=== PATIENT | female | born 1970 | race Caucasian/White ===

== ENCOUNTER 2017-02-14 10:50 | Day surgery (SDC) | payer OTHER ==
--- NOTE | 2017-02-06 11:05 | HP ---
Admitting History and Physical - Primary Care Physician PCP: Flako Acosta - Admission Chief Complaint: right breast cancer History of Present Illness: 46 yo female noted to have suspicious calcifications in the right breast at 10 oclock position, underwent a steriotactic core bx on 01/05/2017 which was c/w a high grade DCIS and radial sclerosing lesion. ER and GA positive. Patient had an MRI done which was c/w known cancer without multifocal or contralateral dz. Patient to undergo right breast WE with NL, lympho and snbx. History Source: Patient Limitations to Obtaining History: No Limitations - Past Medical History Gastrointestinal: Yes: Other (Celiac) ENT: Yes: Other (environmental allergies) Endocrine: Yes: Other (Hashimotos) Dermatology: Yes: Psoriasis - Past Surgical History Past Surgical History: Yes: Appendectomy (2011), Breast Biopsy (bilateral breast bxs in 2004 and 2012-benign) - Smoking History Smoking history: Former smoker Have you smoked in the past 12 months: No - Alcohol/Substance Use Hx Alcohol Use: Yes (3 per week) Home Medications - Allergies Allergies/Adverse Reactions: Allergies Allergy/AdvReac Type Severity Reaction Status Date / Time Gadolinium-Containing Allergy Verified 01/19/17 10:11 Contrast Medi Family Disease History - Family Disease History Family Disease History: CA: Grandparent (Breast ca (twice) 40's ), Sister (half sister @ 45 breast ca ;BRCA negative) Review of Systems - Review of Systems Constitutional: reports: No Symptoms Cardiovascular: reports: No Symptoms Respiratory: reports: No Symptoms Physical Examination Constitutional: Yes: Well Nourished, Calm Breast(s): Yes: Other (Breasts are symmetrical without suspicious masses or adenopathy noted bilaterally.) Problem List - Problems (1) Ductal carcinoma in situ (DCIS) of right breast Assessment/Plan: Right breast WE with NL, lymphoscintogram, snbx poss andx Code(s): D05.11 - INTRADUCTAL CARCINOMA IN SITU OF RIGHT BREAST
[2017-02-07 10:25] VITALS: BMI 18.8
[2017-02-14] MEDS ORDERED: PROPOFOL 20 ML ONE ×2 (15:29→15:53)
[2017-02-14] MEDS ORDERED: MIDAZOLAM HCL 2 MG/2 ML SINGLE DOSE VIAL ONE (15:29)
[2017-02-14] MEDS ORDERED: ISOSULFAN BLUE 10 MG/ML VIAL SQ ONE (15:44)
[2017-02-14] MEDS ORDERED: DEXAMETHASONE SOD PHOSPHATE 4 MG/1 ML VIAL ONE ×2 (16:06→16:08)
[2017-02-14] MEDS ORDERED: ONDANSETRON 4 MG/2 ML VIAL ONE (16:08)
[2017-02-14] MEDS ORDERED: SODIUM CHLORIDE 0.9% P/F 10 ML VIAL IJ ONE (16:08)
[2017-02-14] MEDS ORDERED: LIDOCAINE HCL/PF 2% SDV 5ML VIAL ONE (16:08)
[2017-02-14] MEDS ORDERED: ceFAZolin SODIUM 1 GM VIAL ONE (16:08)
[2017-02-14] MEDS ORDERED: oxyCODONE HCL 5 MG TABLET PO PRN (16:27)
[2017-02-14] MEDS ORDERED: PROMETHAZINE HCL 25 MG/1 ML VIAL IVPUSH PRN (16:27)
[2017-02-14] MEDS ORDERED: ONDANSETRON 4 MG/2 ML VIAL IVPUSH PRN (16:27)
[2017-02-14] MEDS ORDERED: LIDOCAINE HCL 1%, 10 MG/ML (20ML VIAL) ONE (16:42)
[2017-02-14] MEDS ORDERED: DESFLURANE GAS 240 ML BOTTLE IH ONE (16:42)
[2017-02-14] MEDS ORDERED: BUPIVACAINE HCL/PF 2.5 MG/ML - 30 ML VIAL IJ ONE (16:47)
[2017-02-14] MEDS ORDERED: BUPIVACAINE HCL/PF 0.25% (2.5MG/ML) 10 ML VIAL IJ ONE (17:15)
[2017-02-14] MEDS ORDERED: KETOROLAC TROMETHAMINE 30 MG/1 ML VIAL IVPUSH PRN (17:27)
[2017-02-14] MEDS ORDERED: ONDANSETRON 4 MG/2 ML VIAL IVPB PRN (17:27)
[2017-02-14] MEDS ORDERED: DEXTROSE 5%-0.45% SALINE 1,000 ML IV SCH (17:30)
[2017-02-14 20:01] VITALS: PULSE 67
[2017-02-14 20:21] VITALS: BP 110/62; TEMP 98.1
--- NOTE | 2017-02-15 07:39 | OP ---
DATE OF OPERATION: 02/14/2017 PREOPERATIVE DIAGNOSIS: Right breast ductal carcinoma in situ, high grade. POSTOPERATIVE DIAGNOSIS: Right breast ductal carcinoma in situ, high grade. PROCEDURE: Right breast partial mastectomy with mammographic needle localization with right axillary sentinel lymph node biopsy and partial tissue transfer closure. ANESTHESIA: General laryngeal mask airway anesthesia. PRIMARY SURGEON: Santino Acosta MD CASTING ASSISTANT: JANEY Garcia ANESTHESIOLOGIST: Mookie Sky MD COMPLICATIONS: None. Briefly, the patient is a 46-year-old perimenopausal white female of [place] descent with a family history with a half sister who had breast cancer at age 45 and her paternal grandmother had breast cancer in her 40s. The patient was found to have some calcifications around the 10 o'clock region of the right breast on screening mammography in December 2016 and stereotactic biopsy showed high-grade DCIS which is ER/NH positive. MRI showed no contralateral or multifocal disease. 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 Wide excision was recommended with a sentinel lymph node biopsy given the high-grade nature of the DCIS. The patient was brought in for the procedure on February 14, 2017, and underwent the lymphoscintigraphy and needle localization at [facility] and then was brought to the [place] holding area. In the holding area, site verification was made and informed consent was obtained. She was brought into the operating room and laid on the OR table in the supine position. Venodynes were placed on the lower extremities and she received a gram of Ancef prior to incision. Both breasts were sterilely prepped and draped in the usual fashion and she underwent general laryngeal mask airway anesthesia. Lymphazurin blue, 3 mL, were injected intradermally and peritumorally around the needle localization site and massage was instituted. An incision was made just below the hair-bearing area of the right axilla and dissection was undertaken and 2 blue hot lymph nodes were easily found in the level I region of the right axilla labeled "sentinel lymph node number 1" with a 10-second gamma count of 1551 and "sentinel lymph node number 2" which had a 10-second gamma count of 2994. Both of these were sent off in formalin for permanent section and were grossly negative. Hemostasis was achieved. Background count after removal of these 2 nodes was 241. No other blue or hot nodes were found and the axilla was closed using interrupted 2-0 plain suture to close the deep tissues and then interrupted 3-0 deep dermal Vicryl suture and a running 4-0 subcuticular Biosyn suture to close the skin. Mastisol, Steri-Strips were applied over the wound. We then performed the wide excision around the right breast needle localization site. An incision was made around the periareolar region of the right breast nipple-areolar complex and dissection was undertaken around the needle localization site. The breast tissue was completely removed from around the wire with the breast tissue completely removed all the way down to the pectoralis major muscle. The specimen was oriented with a long lateral, short superior suture and specimen radiograph showed removal of the clip in question. At this point, separate margins were taken on the superior, inferior, medial, lateral, deep, and anterior margins with sutures marking the biopsy cavity sides. Hemostasis was achieved. At this point, the 3 x 4-cm tissue transfer closure was accomplished by undermining the breast tissue and reapproximating the breast tissue with interrupted 2-0 plain suture. The skin was closed using interrupted 3-0 deep dermal Vicryl suture and a running 4-0 subcuticular Biosyn suture. Mastisol, Steri-Strips applied over the wound. The patient was awake and alert and laryngeal mask airway tube was removed at the end of the case. Estimated blood loss was about 20 mL and she was hemodynamically stable throughout. All sponge and needle counts were correct at the end of the case. The patient will be recovered in the postanesthesia care unit and discharged home the same day once discharge criteria are met. She is to follow up in the office in 1 week for a formal wound pathology check. SANTINO ACOSTA M.D. [id number]
--- NOTE | 2017-02-20 15:12 | PATH ---
Surgical Pathology Report Patient Name: [facility]. Rec. #: [id number] /Age/Gender: 1970 (Age: 46) / F Account: [id number] Location: [facility] Taken: 02/14/2017 Received: 02/14/2017 Reported: 02/20/2017 Physicians: Flako Acosta M.D. Specimen(s) Received A: RIGHT AXILLARY SENTINEL NODE #1 B: RIGHT AXILLARY SENTINEL NODE #2 C: RIGHT BREAST WIDE EXCISION D: RIGHT BREAST SUPERIOR MARGIN E: RIGHT BREAST INFERIOR MARGIN F: RIGHT BREAST MEDIAL MARGIN G: RIGHT BREAST LATERAL MARGIN H: RIGHT BREAST DEEP MARGIN I: RIGHT BREAST ANTERIOR MARGIN Clinical History DCIS right upper outer quadrant Final Diagnosis A. LYMPH NODE, RIGHT AXILLARY SENTINEL #1, EXCISION: ONE BENIGN LYMPH NODE (0/1). B. LYMPH NODE, RIGHT AXILLARY SENTINEL #2, EXCISION: ONE BENIGN LYMPH NODE (0/1). C. BREAST, RIGHT, WIDE EXCISION: ATYPICAL DUCTAL HYPERPLASIA (ADH), RADIAL SCAR, SCLEROSING ADENOSIS, PROLIFERATIVE FIBROCYSTIC CHANGES, FIBROADENOMATOID CHANGES AND COLUMNAR CELL CHANGES WITH ASSOCIATED CALCIFICATIONS. NO RESIDUAL DUCTAL CARCINOMA IN SITU (DCIS) IS IDENTIFIED. PRIOR BIOPSY SITE CHANGES ARE PRESENT. D. BREAST, RIGHT, SUPERIOR MARGIN, EXCISION: BENIGN BREAST TISSUE SHOWING RADIAL SCAR, SCLEROSING ADENOSIS, FIBROCYSTIC CHANGES AND COLUMNAR CELL CHANGES. E. BREAST, RIGHT, INFERIOR MARGIN, EXCISION: BENIGN BREAST TISSUE SHOWING SCLEROSING ADENOSIS AND COLUMNAR CELL CHANGES. F. BREAST, RIGHT, MEDIAL MARGIN, EXCISION: BENIGN BREAST TISSUE SHOWING RADIAL SCAR AND SCLEROSING ADENOSIS. G. BREAST, RIGHT, LATERAL MARGIN, EXCISION: BENIGN BREAST TISSUE SHOWING FIBROCYSTIC CHANGES. H. BREAST, RIGHT, DEEP MARGIN, EXCISION: BENIGN BREAST TISSUE SHOWING FIBROCYSTIC CHANGES AND SCLEROSING ADENOSIS. I. BREAST, RIGHT, ANTERIOR MARGIN, EXCISION: BENIGN BREAST TISSUE SHOWING FIBROCYSTIC CHANGES. Electronically Signed Bailey Diehl M.D. Gross Description A. Received in formalin labeled "right axillary sentinel node #1," is a 1.1 x 1.0 x 0.6 cm kumar, irregular lymph node with attached fat. The specimen is bisected and entirely submitted in one cassette. B. Received in formalin labeled "right axillary sentinel node #2," a 1.3 x 1.0 x 0.6 cm kumar, irregular lymph node with attached fat. The specimen is bisected and entirely submitted in one cassette. C. Received in formalin, labeled "right breast wide excision," is a 4.7 x 4.0 x 2.6 cm. kumar-yellow, irregular,portion of fibroadipose tissue with a needle localization wire present. There is a short suture marking the superior aspect and a long suture marking the lateral aspect, per the surgeon. There is no skin present. The specimen is inked as follows: superior and lateral blue; inferior green; medial yellow; anterior red; deep black. The specimen is serially sectioned from superior to inferior. Sectioning reveals diffuse dense white fibrous tissue with focal calcifications. There is a raza metallic biopsy clip identified. Lining Inserter sections are submitted in 9 cassettes as follows: 1-section from biopsy clip (lateral, anterior and deep margins); [id number] sections surrounding biopsy clip (lateral, anterior and deep margins); [id number] wine sales representative fibrous tissue (lateral, anterior and deep margins); 7-medial margin; 8-inferior margin; 9-superior margin. Total formalin fixation time: Approximately 24 hours D. Received in formalin labeled "right breast superior margin," is a 2.6 x 2.0 x 1.0 cm irregular portion of fibroadipose tissue with a suture marking the biopsy cavity side, per the surgeon. The new margin is inked blue and the specimen is serially sectioned. The specimen is entirely submitted in 4 cassettes. E. Received in formalin labeled "right breast inferior margin," is a 2.7 x 1.4 x 0.7 cm irregular portion of fibroadipose tissue with a suture marking the biopsy cavity side, per the surgeon. The new margin is inked in blue and the specimen is serially sectioned. The specimen is entirely submitted in 3 cassettes. F. Received in formalin labeled "right breast medial margin," is a 2.0 x 1.3 x 0.4 cm irregular portion of fibroadipose tissue with a suture marking the biopsy cavity side, per the surgeon. The new margin is inked blue and the specimen is serially sectioned. The specimen is entirely submitted in 2 cassettes. G. Received in formalin labeled "right breast lateral margin," is a 2.8 x 2.1 x 0.8 cm irregular portion of fibroadipose tissue with a suture marking the biopsy cavity side, per the surgeon. The new margin is inked blue and the specimen is serially sectioned. The specimen is entirely submitted in 4 cassettes. H. Received in formalin labeled "right breast deep margin," is a 2.3 x 1.4 x 1.3 cm irregular portion of fibroadipose tissue with a suture marking the biopsy cavity side, per the surgeon. The new margin is inked blue and the specimen is serially sectioned. The specimen is entirely submitted in 3 cassettes. I. Received in formalin labeled "right breast anterior margin," is a 2.0 x 1.4 x 0.9 cm irregular portion of fibroadipose tissue with a suture marking the biopsy cavity side, per the surgeon. The new margin is inked blue and the specimen is serially sectioned. The specimen is entirely submitted in 2 cassettes. 02/15/2017 [facility]02/15/2017
== END 2017-02-14 18:55 | disposition home or self-care (01) ==
LOC: FASU 10:50
PROVIDERS: ATTEND Surgery Surgical Oncology
PROC: 0HBT0ZZ Excision of Right Breast, Open Approach (ICD-10-PCS; principal; 2017-02-14 15:59)
PROC: 07B50ZX Excision of Right Axillary Lymphatic, Open Approach, Diagnostic (ICD-10-PCS; 2017-02-14 15:59)
PROC: 0JX60ZB Transfer Chest Subcutaneous Tissue and Fascia with Skin and Subcutaneous Tissue, Open Approach (ICD-10-PCS; 2017-02-14 15:59)
DX: D05.11 Intraductal carcinoma in situ of right breast (principal); Z80.3 Family history of malignant neoplasm of breast
CPT/HCPCS: 19281; 78195-TC; 84703; 88307-TC; 94760; A9541

== ENCOUNTER 2021-03-19 18:08 | Emergency (ER) | payer OTHER ==
[2021-03-19 18:17] VITALS: BP 110/60; PULSE 101; TEMP 98.1; BMI 31.3
[2021-03-19] MEDS ORDERED: LIDOCAINE 5% TOPICAL PATCH TP ONE (18:30)
[2021-03-19] MEDS ORDERED: ACETAMINOPHEN 500 MG TABLET (FP) PO ONE (18:30)
[2021-03-19] MEDS ORDERED: METHOCARBAMOL 500 MG TABLET PO ONE ×2 (18:43→18:48)
[2021-03-19] MEDS ORDERED: LIDOCAINE 5% TOPICAL PATCH ONE (18:47)
[2021-03-19] MEDS ORDERED: ACETAMINOPHEN 500 MG TABLET (FP) ONE (18:47)
[2021-03-19] MEDS ORDERED: METHOCARBAMOL 500 MG TABLET ONE (18:47)
[2021-03-19] MEDS ORDERED: SODIUM CHLORIDE 0.9% 500 ML INFUS.BAG IV ONE (18:53)
[2021-03-19] MEDS ORDERED: ONDANSETRON 4 MG/2 ML VIAL IVPUSH ONE (18:53)
[2021-03-19 19:31] LABS: BASO % 4.6 % (0-2.0); EOS % 0.1 % (0-4.5); HEMATOCRIT 41.7 % (32.4-45.2); HEMOGLOBIN 14.3 GM/dl (10.7-15.3); LYMPH % 12.4 % (8-40); MCH 31.9 pg (25.7-33.7); MCHC 34.2 g/dl (32.0-36.0); MEAN CELL VOLUME 93.5 fl (80-96); MONO % 4.4 % (3.8-10.2); NEUT % 78.5 % (42.8-82.8); PLATELET COUNT 406 10^3/uL (134-434); RBC 4.47 M/mm3 (3.60-5.2); RDW 13.4 % (11.6-15.6); WHITE BLOOD COUNT 16.3 K/mm3 (4.0-10.8)
[2021-03-19 19:58] LABS: ALBUMIN 4.4 g/dl (3.4-5.0); BILIRUBIN,TOTAL 0.6 mg/dl (0.2-1); CALCIUM 9.7 mg/dl (8.5-10); CREATININE 0.8 mg/dl (0.55-1.3); TOT PROT 8.3 g/dl (6.4-8.2)
[2021-03-19] MEDS ORDERED: ONDANSETRON 4 MG/2 ML VIAL IVPB ONE (20:02)
[2021-03-19] MEDS ORDERED: KETOROLAC TROMETHAMINE 30 MG/1 ML VIAL IVPUSH ONE (20:02)
[2021-03-19] MEDS ORDERED: KETOROLAC TROMETHAMINE 30 MG/1 ML VIAL ONE (20:12)
[2021-03-19] MEDS ORDERED: ONDANSETRON 4 MG/2 ML VIAL ONE (20:12)
[2021-03-19] MEDS ORDERED: LIDOCAINE PATCH REMOVAL MC SCH (22:00)
[2021-03-19] MEDS ORDERED: NITROFURANTOIN MACROCRYSTAL 50 MG CAPSULE (FP) PO SCH (22:30)
[2021-03-19] MEDS ORDERED: NITROFURANTOIN MACROCRYSTAL 50 MG CAPSULE (FP) ONE (22:35)
== END 2021-03-19 22:38 | disposition home or self-care (01) ==
LOC: FER 18:08
PROC: 3E033NZ Introduction of Analgesics, Hypnotics, Sedatives into Peripheral Vein, Percutaneous Approach (ICD-10-PCS; principal; 2021-03-19)
PROC: 3E0333Z Introduction of Anti-inflammatory into Peripheral Vein, Percutaneous Approach (ICD-10-PCS; 2021-03-19)
PROC: 3E033GC Introduction of Other Therapeutic Substance into Peripheral Vein, Percutaneous Approach (ICD-10-PCS; 2021-03-19)
DX: M54.9 Dorsalgia, unspecified (principal); N30.00 Acute cystitis without hematuria
CPT/HCPCS: 36415; 74176-TC; 80053; 84703; 85025; 99285-25; C9803; U0003; U0005

== ENCOUNTER 2021-06-24 17:42 | Emergency (ER) | payer OTHER ==
[2021-06-24 17:51] VITALS: BP 147/72; PULSE 81; TEMP 99.2; BMI 31.3
[2021-06-25] MEDS ORDERED: LIDOCAINE HCL 2% (20ML MULTI-DOSE VIAL) ONE (01:05)
[2021-06-25] MEDS ORDERED: METHOCARBAMOL 500 MG TABLET PO ONE (01:13)
[2021-06-25] MEDS ORDERED: METHOCARBAMOL 500 MG TABLET ONE (01:18)
[2021-06-25] MEDS ORDERED: DIPHTH,PERTUSS(ACELL),TET 0.5 ML DISP.SYRIN IM ONE ×2 (03:17→03:21)
[2021-06-25] MEDS ORDERED: CEPHALEXIN MONOHYDRATE 500 MG CAPSULE (UD) PO ONE (03:17)
[2021-06-25] MEDS ORDERED: ACETAMINOPHEN 500 MG TABLET (FP) PO ONE (03:17)
[2021-06-25] MEDS ORDERED: CEPHALEXIN MONOHYDRATE 500 MG CAPSULE (UD) ONE (03:20)
[2021-06-25] MEDS ORDERED: ACETAMINOPHEN 500 MG TABLET (FP) ONE (03:20)
== END 2021-06-25 03:28 | disposition home or self-care (01) ==
LOC: FER 17:42
PROC: 0HQHXZZ Repair Right Upper Leg Skin, External Approach (ICD-10-PCS; principal; 2021-06-24)
PROC: 3E0234Z Introduction of Serum, Toxoid and Vaccine into Muscle, Percutaneous Approach (ICD-10-PCS; 2021-06-24)
PROC: 2W3CX1Z Immobilization of Right Lower Arm using Splint (ICD-10-PCS; 2021-06-24)
DX: S52.531A Colles' fracture of right radius, initial encounter for closed fracture (principal); S81.811A Laceration without foreign body, right lower leg, initial encounter; W10.8XXA Fall (on) (from) other stairs and steps, initial encounter
CPT/HCPCS: 73070-TC-RT-FY; 73110-TC-RT-FY; 73130-TC-RT-FY; 90715; 99283-25